=== PATIENT | female | born 1980 | race Caucasian/White ===

== ENCOUNTER 2017-08-05 14:57 | Emergency (ER) | payer OTHER ==
[~2017-08-05] VITALS: Ht 165.1 cm; Wt 60.0 kg
[2017-08-05 15:01] VITALS: Ht 165.1 cm; Wt 60.0 kg
--- NOTE | 2017-08-05 16:09 | ERD ---
ER Documentation Chief Complaint Date/Time DATE: 08/05/17 TIME: 16:06 Chief Complaint SENT BY PMD FOR CONTACT LENS STUCK IN RT EYE X 2 DAYS HPI This is a 36-year-old female presenting to emergency department for contact lens stuck in her right eye for the last 2 days. Patient was seen by her primary care provider Dr. Ocasio who attempted to remove contact lens and was unable to do so. Patient was sent to the ER for removal. Patient has pain to right eye. No tearing or purulent drainage. No swelling. ROS All systems reviewed and are negative except as per history of present illness. Medications Home Meds Active Scripts Ciprofloxacin Opht* (Ciloxan*) 0.3%-3.5 Opht Oint, 1 APPLIC RIGHT EYE Q2HWA for 7 Days, EA 1 application to right eye every 2 hours while awake for 2 days. Then every 4 hours for 5 days Prov:DWAIN SOLIS NP 08/05/17 Physical Exam Vitals Vital Signs Date Time Temp Pulse Resp B/P Pulse Ox O2 Delivery O2 Flow Rate FiO2 08/05/17 15:01 98.9 98 18 135/74 98 Physical Exam Const: Alert, anxious. Head: Atraumatic Eyes: ENT: Normal External Ears, Nose and Mouth. Neur: Awake and alert Psych: Normal Mood and Affect Results 24 hrs Current Medications Medications (Trade) Dose Ordered Sig/Shawn Route PRN Reason Start Time Stop Time Status Last Admin Dose Admin Tetracaine HCl (Tetracaine 0.5% Steri-Unit Tri) 1 drop ONCE ONCE RIGHT EYE 08/05/17 16:30 08/05/17 16:31 DC Fluorescein Sodium (Wkplu-P-Bwoot) 1 strip ONCE ONCE RIGHT EYE 08/05/17 16:30 08/05/17 16:31 DC Procedures/MDM MDM: This is a 36-year-old female resenting to emergency department or contact lens stuck in the right eye for the last 2 days. Patient was seen by urgent care earlier today and was sent to the ER for removal of contact lens. Tetracaine instilled in right eye. Fluorecin stip applied to right eye. Thorough examination done with cotton swab and wood's lamp without evidence of foreign body. There is a small corneal abrasion to 9 o clock region of cornea. Patient also examined by Dr. Morgan and we agree that patient is appropriate for outpatient management with follow up with ophthalmology in the next 24-48 hours. Patient denies any loss of vision. No subconjunctival hemorrhage or erythema. No tenderness to palpation. No fevers or chills. No change in vision, loss of vision, blurry vision, floaters, halos around lights, veil or curtain coming down over eye. There is no pain with eye movement and no proptosis therefore I have low suspicion for orbital cellulitis or periorbital abscess. No rash, burning or lesion therefore I have low suspicion for herpes zoster or varicella. No visual changes, photophobia or loss of vision so I have low suspicion for acute angle closure glaucoma or iritis. Differential diagnosis includes but not limited to corneal abrasion, periorbital cellulitis, allergic reaction, insect bite, blepharitis, bacterial conjunctivitis, viral conjunctivitis, allergic conjunctivitis, blepharitis, hordeolum or chalazion. Low suspicion for orbital cellulitis, periorbital abscess, varicella, angle closure glaucoma or iritis. Patient is appropriate for outpatient management and will be given prescription for Cipro opth. drops. Instructed patient to follow up with amusement machine mechanic in the next 24-48 hours for reassessment. May follow-up with [facility] and resources provided. Return to ED for any high fever, chest pain, difficulty breathing, shortness breath, wheezing, vomiting, diarrhea, abdominal pain or any new or worsening symptoms. Patient verbalizes understanding. All questions answered at discharge. Disclaimer: Inadvertent spelling and grammatical errors are likely due to EHR/ dictation software use and do not reflect on the overall quality of patient care. Also, please note that the electronic time recorded on this note does not necessarily reflect the actual time of the patient encounter. Departure Diagnosis: Primary Impression: Corneal abrasion Encounter type: initial encounter Laterality: right Qualified Code: S05.01XA - Abrasion of right cornea, initial encounter Condition: Stable DWAIN SOLIS NP Aug 05, 2017 16:09
[2017-08-05] MEDS ORDERED: TETRACAINE 0.5% 4 ML OPH RIGHT EYE ONE (16:30)
[2017-08-05] MEDS ORDERED: FLUORESCEIN STRIP RIGHT EYE ONE (16:30)
[2017-08-05] MEDS ORDERED: CPR3OO3.5 RIGHT EYE (17:05)
== END 2017-08-05 17:51 | disposition home or self-care (01) ==
LOC: FTE 14:57
DX: S05.01XA Injury of conjunctiva and corneal abrasion without foreign body, right eye, initial encounter (principal); X58.XXXA Exposure to other specified factors, initial encounter; Y92.9 Unspecified place or not applicable
CPT/HCPCS: 99283